=== PATIENT | female | born 1985 | race Caucasian/White ===

== ENCOUNTER 2020-10-07 11:04 | Emergency (ER) | payer BC, OTHER, SELFPAY ==
[2020-10-07 11:30] VITALS: BP 130/89; PULSE 96; RESP 14; TEMP 36.2; O2SAT 98; BMI 36.8
--- NOTE | 2020-10-07 11:42 | HMH.EDUTC ---
[facility] [place] Disposition Clinical Impression: Encounter for laboratory testing for COVID-19 virus Disposition: Home, Self-Care Condition on Discharge: Good Instructions: DI for COVID-19 (Suspected or Confirmed ), Coronavirus Disease 2019, Preventing the Spread of Coronavirus Discharge Instructions Additional Instructions: *Monitor Temp, Over the counter Motrin or Tylenol as directed/as needed Tylenol every 4 hours and Motrin every 6 hours (as long as your family doctor has told you that you can take it) for fever or pain. and straight to ER if unable to lower temp less than 101.0 after medication given *Warm salt water gargles may help to soothe the throat *Throat Lozenges *Warm fluids like tea with honey may help to soothe the throat *Sleep elevated *Humidifier/Vaporizer *Flonase 2 sprays in each nostril daily but be aware that it may take 2-3 days before you notice improvement Follow up IMMEDIATELY for new or worsening symptoms or no Noticeable improvement over the next 48-72 hours. 911 for difficulty breathing or swallowing You were tested for today for COVID19 your test result should be back in the next 24-48 hours, you may call to the [facility] to see if your test results are back in the next 48 hours [phone] [facility] hours are 9am-9pm You was given a handout with instructions for Self Quarantine and Self isolation for while you wait on test results and what to do if they are positive If you are positive the Health Dept will be contacting you also Prescriptions: Fluticasone Propionate [Flonase 50mcg nasal spray 16gm] 1 spr NS DAILY #1 bottle Transmission Status: Pending to [id number] Referrals: Larisa Ibarra APRN [Primary Care Provider] - As needed Forms: Work/School Release Time of Disposition: 11:47 Medical Decision Making - Bladimir Inquiry Pt receiving controlled substance: No Bladimir was queried for this patient: No Vital Signs: 10/07/20 11:30 Temperature 97.1 F L Temperature Source Oral Pulse Rate [Right Brachial] 96 H Respiratory Rate 14 Blood Pressure [Right Arm] 130/89 Blood Pressure Mean [Right Arm] 102 Blood Pressure Source [Right Arm] Automatic Cuff Blood Pressure Position [Right Arm] Sitting 02 Sat by Pulse Oximetry 98 Oxygen Delivery Method Room Air Orders (Tests/Meds): ORDERS Category Date Time Status Covid-19 Nasal PCR ([facility]) Routine Lab 10/07/20 11:06 Ordered [facility] [place] HPI - General Stated complaint: covid test Time Seen by Provider: 10/07/20 11:42 Mode of Arrival: Ambulatory Source of Information: Patient Limitations: No Limitations Description of Symptoms (Recalled from Triage Doc. by RN): PATIENT C/O COUGH, SORE THROAT, CHEST TIGHTNESS, HEADACHES, CHILLS, AND LOW-GRADE FEVER SINCE THIS MORNING HEENT Symptoms (Recalled from RN notes): Yes Resp Symptoms (Recalled from RN notes): No Skin Symptoms (Recalled from RN notes): No MS Symptoms (Recalled from RN notes): No Functional Status (Recalled from RN notes): WNL - History of Present Illness Provider Complaint: Patient states that she wanted to get tested for COVID States that she has been having sinus congestion and drainage, sore throat, cough, drainage in her throat body aches, and over all not feeling well States that symptoms started this morning - Related Data Previous Rx's Medication Instructions Recorded Fluticasone Propionate [Flonase 1 spr NS DAILY #1 bottle 10/07/20 50mcg nasal spray 16gm] Allergies Allergy/AdvReac Type Severity Reaction Status Date / Time cefprozil [From CEFZIL] Allergy Severe WHIVES Verified 10/07/20 11:35 - Worker's Comp Is this a Worker's Comp case?: No [facility] History - Hepatitis A Screen Drug use history?: No High risk sexual behaviors?: No History of sexually transmitted infection?: No Currently employed?: No Childcare worker?: No Do you have indoor plumbing?: Yes Do you have electricity?: Yes Attestation statement:: This patient has been screened for Hepatiti
[2020-10-07 11:46] VITALS: BP 130/89; PULSE 96; RESP 14; TEMP 36.2; O2SAT 98
[2020-10-07 11:59] LABS: UTC Influenza A Antigen Negative (Negative)
[2020-10-07 12:00] LABS: UTC Influenza B Antigen Negative (Negative)
[2020-10-08 09:52] LABS: Covid-19 Nasal PCR Sendout P&C NEGATIVE
== END 2020-10-07 11:55 | disposition home or self-care (01) ==
PROVIDERS: Emergency Provider Nurse Practitioner; PCP Nurse Practitioner Family
DX: Z20.822 Contact with and (suspected) exposure to COVID-19 (principal); R50.9 Fever, unspecified; R05 Cough; Z01.84 Encounter for antibody response examination
CPT/HCPCS: 87804; 99202; G0463; U0004

== ENCOUNTER → 2021-04-10 12:34 | Outpatient (CLI) | payer BC, SELFPAY ==
--- NOTE | 2021-04-10 12:39 | MM_ITS ---
PROCEDURE: MM DIG MAMM BI DX W/CAD Digital Breast Tomosynthesis Included CLINICAL INDICATION: BREAST MASS RT COMPARISON: US US BREAST RT COMPLETE from 04/10/2021 TECHNIQUE: Standard CC and MLO images and 3D Tomosynthesis was obtained. R2 CAD reviewed. FINDINGS: The breasts are composed of scattered fibroglandular tissue. No dominant mass lesions, suspicious calcification or architectural distortion is noted. At the site of marker placement in the right upper outer quadrant no focal suspicious mass lesions are noted. No evidence of mass lesions are noted on the ultrasound of the right breast. Benign appearing calcification in the right breast. IMPRESSION: No focal masses or suspicious findings. BI-RAD Category: 2 Benign Finding FOLLOW-UP: Follow-up as clinically indicated. Routine screening mammogram at age 40. (A letter has been sent to the patient regarding results of the study.) Dictated by: Eli Saul 04/10/2021 14:22 Eli Saul in [place] 04/10/2021 14:22
--- NOTE | 2021-04-10 12:39 | US_ITS ---
PROCEDURE: US BREAST RT COMPLETE CLINICAL INDICATION: BREAST MASS RT COMPARISON: No exams were available for comparison FINDINGS: At the area of concern at 10 o'clock position there is dense fibroglandular tissue. No focal masses or suspicious findings. Axillary lymph node measuring up to 1.3 centimeters noted. IMPRESSION: No focal masses or suspicious findings. Dictated by: Eli Saul 04/10/2021 14:24 Eli Saul in [facility] 04/10/2021 14:24
== END ==
PROVIDERS: PCP Nurse Practitioner Family; Visit Provider Nurse Practitioner Family
DX: N63.10 Unspecified lump in the right breast, unspecified quadrant (principal)
CPT/HCPCS: 76641; 77062; 77066; G0279

== ENCOUNTER 2021-06-01 09:18 | Emergency (ER) | payer BC, SELFPAY ==
[2021-06-01 09:36] VITALS: PULSE 109; RESP 18; TEMP 37.4; O2SAT 97; BMI 35.6
[2021-06-01 09:42] VITALS: BP 119/67; PULSE 109; RESP 16; TEMP 37.4
[2021-06-01 09:48] LABS: UTC Strep Screen (Rapid) Negative (Negative)
--- NOTE | 2021-06-01 09:56 | HMH.EDUTC ---
[facility] [place] Disposition Clinical Impression: Encounter for laboratory testing for COVID-19 virus Disposition: Home, Self-Care Condition on Discharge: Good Instructions: Preventing the Spread of Coronavirus Discharge Instructions Additional Instructions: You have been tested for COVID19. Please isolate yourself as if you are positive until test results received. Your results should be available on your patient portal when complete. Referrals: Larisa Ibarra APRN [Primary Care Provider] - Forms: Work/School Release Time of Disposition: 10:04 Medical Decision Making - Bladimir Inquiry Pt receiving controlled substance: No Vital Signs: 06/01/21 09:36 06/01/21 09:42 Temperature 99.3 F 99.3 F Temperature Source Oral Pulse Rate 109 H Pulse Rate [Left] 109 H Respiratory Rate 18 16 Blood Pressure 119/67 02 Sat by Pulse Oximetry 97 - Lab Data Lab results reviewed: Yes: I reviewed the patient's lab results. Lab Results 06/01/21 09:41: Strep Scn Rapid Clinic Negative Orders (Tests/Meds): ORDERS Category Date Time Status Covid-19 Nasal PCR ([facility]) Routine Lab 06/01/21 09:41 Ordered Strep Screen Confirmation Stat Micro 06/01/21 09:41 Received [facility] [place] HPI - General Stated complaint: sore throat, cough, headache, fever,congestion Time Seen by Provider: 06/01/21 09:55 Mode of Arrival: Ambulatory Source of Information: Patient Limitations: No Limitations Description of Symptoms (Recalled from Triage Doc. by RN): pt c/o sore throat, loss of taste, CEDILLO and congestion. since last night. HEENT Symptoms (Recalled from RN notes): Yes (sore throat, loss of taste, congestion and CEDILLO) Resp Symptoms (Recalled from RN notes): No Skin Symptoms (Recalled from RN notes): No MS Symptoms (Recalled from RN notes): No Functional Status (Recalled from RN notes): na - History of Present Illness Provider Complaint: Sore throat, headache, cough, body aches and chills since last night. This am she cannot smell or taste. No vomiting or diarrhea. No direct known exposure to COVID19 but she works at [employer]. Onset (ago): day(s) (1) Location: mouth Relieving factors: none Exacerbating factors: none Associated symptoms: cough, fever/chills Treatments prior to arrival: none - Related Data Previous Rx's Medication Instructions Recorded Fluticasone Propionate [Flonase 1 spr NS DAILY #1 bottle 10/07/20 50mcg nasal spray 16gm] Allergies Allergy/AdvReac Type Severity Reaction Status Date / Time cefprozil [From CEFZIL] Allergy Severe WHIVES Verified 10/07/20 11:35 - Worker's Comp Is this a Worker's Comp case?: No [facility] History - Hepatitis A Screen Drug use history?: No High risk sexual behaviors?: No History of sexually transmitted infection?: No Currently employed?: No Childcare worker?: No Do you have indoor plumbing?: Yes Do you have electricity?: Yes Attestation statement:: This patient has been screened for Hepatitis A risk factors. I have reviewed the patient's past medical history: Yes - Social History Alcohol Intake: never Occupational Status: other ROS Obtained: Yes All systems reviewed & no additional complaints - Constitutional Constitutional: Reports body ache, Reports chills, Reports malaise - ENT Ears, Nose, Mouth, and Throat: Reports sore throat - Respiratory Respiratory: Reports cough Physical Exam - General General appearance: alert, in no apparent distress - Head Head exam: normocephalic - Eye Eye exam: Present: PERRL - ENT ENT exam: Present: normal oropharynx, TM's normal bilaterally - Neck Neck exam: Present: normal inspection. Absent: lymphadenopathy - Chest Chest inspection: Present: normal inspection, symmetric chest wall rise - Respiratory Respiratory exam: Present: normal lung sounds bilaterally - Cardiovascular Cardiovascular exam: Present: regular rate, normal rhythm - Neurological Exam Neurological exam: Present: alert, oriented X
== END 2021-06-01 10:11 | disposition home or self-care (01) ==
PROVIDERS: Emergency Provider Physician Assistant; PCP Nurse Practitioner Family
DX: Z20.822 Contact with and (suspected) exposure to COVID-19 (principal); R43.9 Unspecified disturbances of smell and taste; R50.9 Fever, unspecified; R05 Cough
CPT/HCPCS: 87880; 99203; C9803; G0463; U0003; U0005

== ENCOUNTER → 2021-09-16 20:12 | Outpatient (CLI) | payer BC, SELFPAY | PROVIDERS: Visit Provider Nurse Practitioner Family | DX: J02.9 Acute pharyngitis, unspecified (principal); U07.1 COVID-19 | CPT/HCPCS: C9803; U0003; U0005 ==

== ENCOUNTER → 2021-12-16 17:21 | Outpatient (CLI) | payer OTHER, SELFPAY ==
--- NOTE | 2021-12-16 | XR_ITS ---
PROCEDURE INFORMATION: Exam: XR Right Foot Exam date and time: 12/16/2021 5:27 PM Age: 36 years old Clinical indication: Injury or trauma; Fall; Work related; Blunt trauma; Foot; Right; Injury date: 12/16/2021; Additional info: Patient dropped rack on foot TECHNIQUE: Imaging protocol: XR Right foot. Views: 3 or more views. COMPARISON: No relevant prior exams. FINDINGS: Bones/joints: Normal. No fractures or dislocations. The joint spaces are intact. Soft tissues: Normal. No swelling or abnormal density. IMPRESSION: No acute findings.
== END ==
PROVIDERS: PCP Nurse Practitioner Family; Visit Provider Nurse Practitioner Family
DX: M79.671 Pain in right foot (principal)
CPT/HCPCS: 73630

== ENCOUNTER → 2023-01-08 10:55 | Outpatient (CLI) | payer BC, SELFPAY ==
--- NOTE | 2023-01-08 11:02 | US_ITS ---
FINAL REPORT CLINICAL HISTORY: PELVIC PAIN,VAGINAL BLEEDING FINDINGS: Transvaginal sonographic images of the pelvis were obtained. The uterus measures 9.7 x 5.3 x 3.6 cm. The endometrium measures 11 mm, which is within normal limits. No uterine mass is identified. The right ovary measures 3.6 cm in length and left ovary measures up to 4.5 cm. Normal blood flow seen to the ovaries. There is a heterogeneous cystic mass measuring 4.5 cm in the left ovary which may represent an endometrioma or a complex cyst. Neoplasm is felt less likely. There is no evidence of free fluid. IMPRESSION: 4.5 cm heterogeneous cystic mass in the left ovary may represent an endometrioma or a complex cyst, neoplasm felt less likely. Reviewed, Interpreted and Dictated by Elias Clemens III, MD Transcribed by Shefali Olsen Authenticated and [facility]
== END ==
PROVIDERS: PCP Nurse Practitioner Family; Visit Provider Nurse Practitioner Family
DX: R10.2 Pelvic and perineal pain (principal); N92.3 Ovulation bleeding
CPT/HCPCS: 76830

== ENCOUNTER → 2023-02-22 13:35 | Outpatient (CLI) | payer BC, SELFPAY ==
--- NOTE | 2023-02-22 13:35 | US_ITS ---
PROCEDURE: US TRANSVAGINAL and transabdominal to better visualize the adnexae. CLINICAL INDICATION: pelvic pain / ovarian cyst COMPARISON: US US TRANSVAGINAL from 01/08/2023 FINDINGS: LMP: 02/01/2023 UTERUS: 10cm x 6cmx 4cm with a combined endometrial thickness of 7.4mm. The uterus is retroflexed and normal in shape and size. There are multiple nabothian cysts within the cervix. LEFT OVARY: [id number] with a volume of 10ml. There is a 2.2 centimeter follicle. The previously described 4.5 centimeter left ovarian hemorrhagic cyst has resolved. RIGHT OVARY: 3cmx [id number] with a volume of 6.4ml. No free fluid in the cul-de-sac. IMPRESSION: 1. Uterus is retroflexed and normal in shape and size. The endometrium appears normal. There are multiple nabothian cysts within the cervix. 2. Ovaries are normal in shape and size. There are follicles on both ovaries. The previously described 4.5 centimeter hemorrhagic cyst on the left ovary has resolved. 3. No fluid in the cul-de-sac. Dictated by: Gibran Encinas MD 02/22/2023 17:15 Gibran Encinas MD in [facility] 02/22/2023 17:15
== END ==
PROVIDERS: PCP Nurse Practitioner Family; Visit Provider Obstetrics & Gynecology
DX: R10.2 Pelvic and perineal pain (principal); N83.209 Unspecified ovarian cyst, unspecified side
CPT/HCPCS: 76830

== ENCOUNTER → 2023-04-20 11:19 | Outpatient (CLI) | payer BC, SELFPAY ==
[2023-04-20 11:43] LABS: Basophils % 0.4 % (0.1-2.0); Eosinophils # 0.2 K/mm3 (0.0-0.4); Eosinophils % 2.2 % (0.1-12.0); Hemoglobin 13.4 g/dL (12.2-16.2); Lymphocytes # 2.6 K/mm3 (0.7-4.5); Mean Corpuscular HGB Conc 32.6 g/dL (31.8-35.4); Mean Corpuscular Hemoglobin 28.4 pg (27.0-31.2); Mean Corpuscular Volume 87.2 fl (81-99); Mean Platelet Volume 8.2 fl (7.4-10.4); Monocytes # 0.6 K/mm3 (0.1-1.0); Monocytes % 5.8 % (1.7-9.3); Neutrophils # 6.2 K/mm3 (1.8-7.8); Neutrophils % 64.6 % (37.0-80.0); Platelet Count 407 K/mm3 (142-424); Red Cell Distribution Width 14.1 % (11.5-17.5); White Blood Count 9.6 K/mm3 (4.8-10.8)
[2023-04-20 13:02] LABS: Alanine Aminotransferase 18 U/L (12-78); Albumin/Globulin Ratio 1.3 (1.1-1.8); Alkaline Phosphatase 85 U/L (38-126); Anion Gap 11.7 mEq/L (5-15); Aspartate Amino Transferase 20 U/L (14-36); Bilirubin,Total 0.2 mg/dl (0.2-1.3); Blood Urea Nitrogen 11 mg/dl (7-17); Calcium 9.9 mg/dl (8.4-10.2); Carbon Dioxide 27 mmol/L (22.0-30.0); Chloride 108 mmol/L (98-107); Estimated Glomerular Filt Rate 81 ml/min (>60); GFR (African American) 98 ML/MIN (>60); Globulin 3.2 g/dL (1.3-3.2); Glucose 81 mg/dl (74-100); Potassium 4.7 mmoL/L (3.5-5.1); Sodium 142 mmol/L (136-145); Total Protein,Serum 7.2 g/dl (6.3-8.2)
[2023-04-20 13:28] LABS: HCG,Quantitative < 2 mIU/ml (0-5.42)
== END ==
LOC: LAB 11:20
PROVIDERS: PCP Nurse Practitioner Family; Visit Provider Obstetrics & Gynecology
DX: Z01.812 Encounter for preprocedural laboratory examination (principal); R10.2 Pelvic and perineal pain
CPT/HCPCS: 36415; 80053; 84702; 85025

== ENCOUNTER 2023-04-28 09:14 | Inpatient (IN) | payer BC, SELFPAY ==
[2023-04-26 11:53] VITALS: BMI 35.6
[2023-04-28] VITALS (22 sets, daily range): BP systolic 103–134; BP diastolic 47–87; PULSE 77–102; RESP 14–22; TEMP 36.1–43; O2SAT 90–99
[2023-04-28 08:00] LABS: Urine Pregnancy, HCG Qual. Negative (Negative)
--- NOTE | 2023-04-28 08:55 | EXP.HP ---
History of Present Illness *Admission Date: 04/28/23 *Reason for visit:: Pelvic pain, abnormal uterine bleeding *History of present illness: Ms Megan Crabtree is a very pleasant 37 yo P2012 who presents for preop visit. She complains of chronic pelvic pain. Pain is daily and reaches 9/10. Her pelvic ultrasound, 02/25/23, demonstrated uterus retroflexed and normal in shape and size, endometrium appears normal, multiple nabothian cysts within the cervix. Ovaries are normal in shape and size. There are follicles on both ovaries. The previously described 4.5 centimeter hemorrhagic cyst on the left ovary has resolved. No fluid in the cul-de-sac. Periods are heavy and painful. She has tried multiple hormones in the past and she states they make her feel crazy. She has surgical history of x 2 and tubal ligation. She desires definitive surgical intervention with hysterectomy. She would like to keep her ovaries if they look healthy. [facility] Disclaimer: The information contained in this section may have been updated after the patient was seen, as this information can be updated by other users. Medical History Abnormal uterine bleeding Heart murmur Ovarian cyst Pelvic pain Tobacco use Surgical History H/O tubal ligation History of delivery History of cholecystectomy Family History Other Diabetes FHx: mental illness Hypertension Thyroid disorder Social History Smoking Status: Current every day smoker alcohol intake: never substance use type: denies use current occupational status: employed Travel in the last 8 weeks: None Review of Systems Review of Systems Review of systems:: pertinent systems reviewed and negative unless documented below *Gastrointestinal Gastrointestinal: Reports abdominal pain *Genitourinary Genitourinary: Reports abnormal menses and Reports pelvic pain Meds Home Medications and Allergies Home Medications Medication Instructions Recorded Confirmed Type No Known Home Medications 02/24/23 04/28/23 History New Prescriptions to Start Prescriptions: Allergies Allergy/AdvReac Type Severity Reaction Status Date / Time cefprozil [From CEFZIL] Allergy Severe WHIVES Verified 04/28/23 07:50 amoxicillin [From Augmentin] Allergy Verified 04/28/23 07:50 clavulanic acid Allergy Verified 04/28/23 07:50 [From Augmentin] Exam Data for Last 24 hours Vital signs and Labs for Last 24 Hours: Temp Pulse Resp BP Pulse Ox O2 Del Method 97 F L 77 14 125/71 97 Room Air 04/28/23 07:52 04/28/23 07:52 04/28/23 07:52 04/28/23 07:52 04/28/23 07:52 04/28/23 07:52 Laboratory Results - last 24 hr 04/28/23 07:46: Urine HCG, Qual Negative I & O for Last 24 hours: Intake & Output 04/25/23 04/26/23 04/27/23 04/28/23 23:59 23:59 23:59 23:59 Weight 208 lb Constitutional Constitutional: no acute distress *Routine HEENT Exam Head: Present normocephalic and atraumatic Eye: Absent conjunctivae pink ENT: Present mucous membranes moist and dentition normal *Routine Neck Exam Neck: Present full ROM *Routine Respiratory Exam Respiratory: Present CTA bilaterally and normal respiratory effort *Routine Cardiovascular Exam Cardiovascular: Present RRR *Routine Abdominal Exam Abdominal: Present soft and normoactive bowel sounds; Absent tenderness or distended *Routine Rectal Exam Rectal:: deferred *Routine Genitalia Exam Genitalia:: normal female *Routine Extremities Exam Extremities: Present full ROM; Absent edema or calf tenderness *Routine Neurological Exam Neurological: Present alert, oriented X3 and moving all extremities Routine Psychiatric Exam Psychiatric: Present normal affect and cooperative Assessment and Plan *Assessment and plan (1) Pelvic pain: Status: Acute
--- NOTE | 2023-04-28 09:25 | P.PNANES_ITS ---
[facility] Disclaimer: The information contained in this section may have been updated after the patient was seen, as this information can be updated by other users. Medical History Abnormal uterine bleeding Heart murmur Ovarian cyst Pelvic pain Tobacco use Surgical History H/O tubal ligation History of delivery History of cholecystectomy Family History Other Diabetes FHx: mental illness Hypertension Thyroid disorder Social History Smoking Status: Current every day smoker alcohol intake: never substance use type: denies use current occupational status: employed Travel in the last 8 weeks: None [facility] Anesthesia Checklist Patient Identification Patient Identification: Arm Band and Verbal (Name & ) Structural Data Admitted From: Home Planned Operative Procedure/s: [facility] Consent for Planned Operative Procedure(s) Verified: Yes NPO Status Verified Time NPO: 00:00 Chart Verification Results Verified: HCG Additional verifications Anesthesia Reactions: No Hx Blood Transfusions: No Airway Assessment Mallampati Score:: Class I C-Spine Mobility Assessed: Yes TMJ Mobility Assessed: Yes Dentition: Good Dentition Neurological Assessment Hx Seizures: No Numbness or tingling in extremities: No Anesthesia Plan Anesthesia Risk discussed: Yes Anesthesia Plan: Verified ASA Class: II Anesthesia Type: General
--- NOTE | 2023-04-28 10:47 | SUR.OPER ---
0945: Decision made to go open. 1004: Open incision time. 1010: Family updated of patient current status. All laprascopic table items removed from the room with counts correct. Open table then opened and all counts completed. See separate note for final counts. OPEN INITIAL COUNT: Instruments: 99 main set +4 O'Saulo/O'Del Rio+ 23 hysterectomy instruments Bovie tip: 1 Laps: 20 Suction: 3 Suture: 2 Raytecs: 20
--- NOTE | 2023-04-28 11:23 | SUR.OPER ---
1121: Family updated of patient current condition.
--- NOTE | 2023-04-28 11:40 | SUR.OPER ---
Open Final Count: Instruments: 99 main set + 27 hysterectomy set + 4 O'Saulo/O'Del Rio + 4 clip appliers Bovie Tip: 1 Laps: 20+10= 30 Suction: 3 Raytecs: 20 Blades: 2 Reel: +1=1
--- NOTE | 2023-04-28 11:46 | SUR.OPER ---
Note Addendum: initial count 2 blades for open procedure.
--- NOTE | 2023-04-28 12:12 | EXP.ANES.I ---
[facility] Anesthesia Record Part I Anesthesia Record I Intake, IV Amount: 800 Hydration: Adequate Estimated blood loss (mL): 300 Urine output (mL): 100 Blood Pressure: 121/75 SaO2: 94 Pulse Rate: 100 Airway Patency: Patent Respiratory Rate: 22 Temperature: 97.5 F Pain scale (0-10): 0 Nausea: No Vomiting: No Patient is:: Drowsy and Oral/Nasal airway Stable to PACU at:: 12:12
--- NOTE | 2023-04-28 12:22 | EXP.OP.NOTE ---
Date of procedure: 04/28/23 Pre-op Diagnosis:: 1. Chronic pelvic pain 2. Abnormal uterine bleeding 3. Tobacco use 4. Anxiety Post-op Diagnosis:: 1. Chronic pelvic pain 2. Abnormal uterine bleeding 3. Tobacco use 4. Anxiety 5. Intra-abdominal adhesions Procedure performed:: 1. Laparoscopy 2. Laparotomy with extensive lysis of adhesions, approximately 45 minutes spent 3. Total abdominal hysterectomy Surgeon:: Lulu Cifuentes DO Parcel Wrapper(s):: Gibran Encinas MD [employer] REPA[employer] TECHNICIAN:: Анна Remy Anesthesia: GETA Estimated blood loss (mL): 300 Clinical Note:: Ms Megan Crabtree is a very pleasant 37 yo P2012 who presents for preop visit. She complains of chronic pelvic pain. Pain is daily and reaches 9/10. Her pelvic ultrasound, 02/25/23, demonstrated uterus retroflexed and normal in shape and size, endometrium appears normal, multiple nabothian cysts within the cervix. Ovaries are normal in shape and size. There are follicles on both ovaries. The previously described 4.5 centimeter hemorrhagic cyst on the left ovary has resolved. No fluid in the cul-de-sac. Periods are heavy and painful. She has tried multiple hormones in the past and she states they make her feel crazy. She has surgical history of x 2 and tubal ligation. She desires definitive surgical intervention with hysterectomy. She would like to keep her ovaries if they look healthy. Operative findings:: 1. On bimanual exam, uterus normal size and shape, no adnexal masses palpated 2. On laparoscopic exam, extensive intraabdominal adhesions. Uterus could not be identified laparoscopically secondary to adhesions between omentum, bowel and anterior abdominal wall and side wall. Decision was made to convert to laparotomy Operative note:: Discussed risks, benefits, alternatives, expectations and possible complications of surgery. All questions addressed and answered. Patient wished to proceed with surgery. Patient was wheeled back to the operating room and placed under general anesthesia without difficulty. She was placed in the dorsal lithotomy position. She was prepped and draped in normal sterile fashion. Beginning at the vagina, a gibson catheter was inserted into the bladder and draining clear urine prior to the start of the procedure. Weighted Auvuard was placed in the vaginal vault. Anterior lip of the cervix was grasped with single tooth tenaculum. Uterus sounded to 10. Marlon dilators were used to dilate the cervix. Advincula uterine manipulator was inserted into the cervix with the colpotomy cup covering the cervix. Single tooth tenaculum was removed prior to complete placement of colpotomy cup over cervix. Uterine balloon was filled with 10cc of air. Vaginal balloon was filled with 60 cc of air. Weighted Auvard was removed. Attention was then turned to the abdomen. Skin just below the umbilicus was injected with 0.5% marcaine. A 1.5 cm infraumbilical incision was made. Veress needle was tested and inserted intrabdominally. Opening pressure was 10 mm Hg. Intraabdominal pressure varied from 10 to 17 mm Hg and flow was not consistent. Laparoscope within 11 mm blunt trocar was inserted intrabdominally under direct visualization. Peritoneal cavity was insulflated to 15 mm Hg. Obturator and scope were removed. Laparoscope was inserted into the trocar sleeve. Abdomen and pelvis was viewed in its entirety. Examination of the peritoneal cavity revealed no signs of injury from entry and extensive intraabdominal adhesions between omentum, bowel and anterior abdominal wall as well as side wall. See findings above. Decision was made to convert to laparotomy. Laparoscope was removed. Pneumoperitoneum was released into the atmosphere. Infraumbilical trocar was removed under direct laparoscopic visualization to ensure no herniation of bowel or omentum. Skin incision was reapproximated with 3-0 Vicryl. Hemostasis was noted. Attention was turned to the vagina. All instruments were removed from the vagina. A
--- NOTE | 2023-04-28 14:07 | EXP.ANES.II ---
[facility] Anesthesia Record Part II Anesthesia Record Part II Discharge Time: 12:42 Destination: Obstetric PACU nurse assessment reviewed?: Yes Patient Condition:: Good Anesthesia Complications:: None Swallowing reflex intact?: Yes Airway Patency: Patent Cyanosis?: No Blood Pressure: 121/87 SaO2: 92 Respiratory Rate: 17 Pulse Rate: 89 Temperature: 97.5 F Mental Status: Alert & Oriented Pain level:: 5 Nausea and/or vomitting:: None Intake, IV Amount: 0 Hydration: Adequate
--- NOTE | 2023-04-28 15:36 | PC.NURSE ---
PROCEDURE FOR TAP BLOCK TIME OUT 1457 START 1452 STOP 1500 Gagan FLORES AT BEDSIDE WITH José Miguel DE
--- NOTE | 2023-04-28 16:30 | PC.NURSE ---
PT GIVEN INCENTIVE HERMES AT THIS TIME - LUNGS SOUNDS WITH RHONCHI AND WHEEZING. PT HAS BEEN DEEP BREATHING AND COUGHING. PILLOW TO SPLINT. BOWEL SOUNDS ACTIVE X4. MIDLINE INCISION UNCHANGED FROM PREVIOUS ASSESMENT. JACK IN PLACE. IV INFUSING. NO NEEDS.
--- NOTE | 2023-04-28 18:44 | PC.NURSE ---
DR CAMARGO IN ROOM. REPORTED ON URINE OUTPUT. NO NEW ORDERS.
--- NOTE | 2023-04-28 19:19 | PC.NURSE ---
REPORT TO Naresh GALINDO RN
--- NOTE | 2023-04-28 19:20 | PC.NURSE ---
REPORT RECIEVED FROM ALFIERN
--- NOTE | 2023-04-28 20:15 | PC.NURSE ---
PT LUNGS CLEAR TO ASCULTATE,RESP.EVEN AND UNLABORED,PT REMAINS ON OXYGEN PER NC AT 3 LITERS,SATURATED LEVEL 97%.PT ABLE TO ACHIEVE 1000ML ON INCENTIVE SPIROMETER.ENCOURAGED PT TO USE IT SEVERAL TIMES AN HOUR,PT REPORTS SHE HAS BEEN USING IT.
--- NOTE | 2023-04-28 22:44 | PC.NURSE ---
DECREASED OXYGEN TO 2 LITERS PER NC .PT USING HER INCENTIVE SPIROMETER.SHE REPORTS SHE HAS BEEN CHEWING GUM FOR THE GAS.TEMP AX WAS 98.6,NO OTHER NEED OR CONCERNS VOICED
[2023-04-29] VITALS (9 sets, daily range): BP systolic 90–122; BP diastolic 35–60; PULSE 75–95; RESP 16–18; TEMP 36.4–37.5; O2SAT 97–99
--- NOTE | 2023-04-29 01:16 | PC.NURSE ---
PT REPORTS PAIN IS GOING DOWN.PAIN IS TOLERABLE NOW.WATER PITCHER REFILLED AND AN APPLE JUICE PROVIDED,NO OTHER NEEDS OR CONCERNS VOICED
--- NOTE | 2023-04-29 04:20 | PC.NURSE ---
SCATTERED WHEEZING NOTED THIS MORNING.PT ENCOURAGED TO USE HER INCENTIVE SPIROMETER.SAT LEVEL 97% ON 2 LITERS,PT REPORTS SHE THINKS THE OXYGEN IS WHY SHE IS COUGHING,REMOVED OXYGEN AND WILL RECHECK SAT.LEVEL IN ABOUT 45MINS TO 1 HOUR.NO NEW DRAINAGE TO DRESSING,,JACK CATH PATENT AND DRAINING CLEAR YELLOW URINE.BOWEL SOUNDS NORMAL X4 QUADS,MEDICATED WITH CARON.TORADOL,NO OTHER NEEDS OR CONCERNS VOICED
--- NOTE | 2023-04-29 05:40 | EXP.ACUTE.PN ---
Subjective *Date: 04/29/23 *Time: 05:40 Interval history: POD # 1 s/p laparoscopy, KATHY Resting comfortably. Pain is controlled with medication. She is tolerating clear liquids. Admits she is hungry. She is not passing flatus yet. Pleitez catheter in place draining clear urine. Denies fever/chills, chest pain and shortness of breath. No headaches or dizziness. She admits to a cough. She has not been up ambulating yet. Medical Exam Vital signs and Labs for Last 24 Hours: Vital Signs Temp Pulse Pulse Pulse Resp BP BP 04/29/23 05:30 04/29/23 02:30 04/29/23 01:12 04/29/23 00:40 04/29/23 00:40 98.5 F 82 17 107/35 L 04/28/23 23:19 04/28/23 22:36 04/28/23 22:00 04/28/23 21:13 04/28/23 20:15 04/28/23 20:15 102 H 04/28/23 20:00 99.0 F 102 H 18 130/71 04/28/23 19:00 98.0 F 96 H 18 04/28/23 18:00 97 H 18 04/28/23 18:42 04/28/23 17:58 04/28/23 17:00 95 H 18 04/28/23 15:00 04/28/23 13:00 04/28/23 16:00 98.1 F 99 H 16 04/28/23 15:30 93 H 18 04/28/23 15:00 93 H 18 04/28/23 14:30 97.8 F 93 H 18 04/28/23 16:21 04/28/23 15:00 18 04/28/23 14:00 97.8 F 80 20 04/28/23 13:45 86 19 04/28/23 13:15 81 17 04/28/23 13:30 80 18 04/28/23 13:00 97.8 F 86 18 04/28/23 14:49 04/28/23 12:42 89 17 04/28/23 12:32 97 H 18 04/28/23 12:22 101 H 17 04/28/23 12:12 97.5 F L 99 H 22 04/28/23 13:30 97.9 F 79 16 04/28/23 07:52 97 F L 77 14 04/28/23 14:09 17 04/28/23 12:15 97.5 F L 100 H 22 121/75 BP Pulse Ox O2 Del Method O2 Flow Rate FiO2 04/29/23 05:30 97 Room Air 04/29/23 02:30 Nasal Cannula 2 04/29/23 01:12 Nasal Cannula 2 04/29/23 00:40 Nasal Cannula 2 04/29/23 00:40 98 Nasal Cannula 2 04/28/23 23:19 Nasal Cannula 2 04/28/23 22:36 Nasal Cannula 2 04/28/23 22:00 Nasal Cannula 3 04/28/23 21:13 Nasal Cannula 3 04/28/23 20:15 Nasal Cannula 3 04/28/23 20:15 97 Nasal Cannula 3 04/28/23 20:00 97 Nasal Cannula 3 04/28/23 19:00 110/47 L 96 Room Air 04/28/23 18:00 121/64 97 Nasal Cannula 3 04/28/23 18:42 Nasal Cannula 3 04/28/23 17:58 Room Air 04/28/23 17:00 134/56 L 94 L Nasal Cannula 3 04/28/23 15:00 Nasal Cannula 3 04/28/23 13:00 Room Air 04/28/23 16:00 115/66 94 L Nasal Cannula 3 04/28/23 15:30 122/62 94 L Nasal Cannula 3 04/28/23 15:00 117/64 91 L Nasal Cannula 3 04/28/23 14:30 121/63 94 L Nasal Cannula 2 04/28/23 16:21 Nasal Cannula 3 04/28/23 15:00 93 L Room Air 3 04/28/23 14:00 115/59 L 95 Nasal Cannula 3 04/28/23 13:45 116/51 L 96 Nasal Cannula 2 04/28/23 13:15 112/57 L 92 L Room Air 04/28/23 13:30 104/55 L 92 L Nasal Cannula 2 04/28/23 13:00 103/55 L 90 L Room Air 04/28/23 14:49 Nasal Cannula 2 04/28/23 12:42 121/87 92 L Room Air 04/28/23 12:32 120/75 97 Room Air 04/28/23 12:22 114/67 99 Room Air 04/28/23 12:12 121/75 94 L Room Air 04/28/23 13:30 104/55 L 91 L Room Air 04/28/23 07:52 125/71 97 Room Air 04/28/23 14:09 04/28/23 12:15 Intake and Output 04/28/23 04/28/23 04/29/23 15:59 23:59 07:59 Intake Total 800 / 800 Output Total 350 / 350 1725 / 1725 Balance 800 / 450 -350 / 450 -1725 / -1725 Intake: Intake, Total IV Amount 800 / 800 Output: Output, Urine Amount 350 / 350 1725 / 1725 Laboratory Results - last 24 hr 04/28/23 07:46: Urine HCG, Qual Negative I & O for Labs for Last 24 Hours: Intake & Output 04/26/23 04/27/23 04/28/23 04/29/23 23:59 23:59 23:59 23:59 Intake Total 800 / 800 Output Total 350 / 350 1725 / 1725 Balance 450 / 450 -1725 / -1725 Weight 208 lb Head: Present atraumatic and norm
--- NOTE | 2023-04-29 07:15 | PC.NURSE ---
REPORT GIVEN TO ESSIERN
[2023-04-29 07:19] LABS: Basophils % 0.2 % (0.1-2.0); Eosinophils % 0.4 % (0.1-12.0); Hematocrit 30.8 % (37.0-47.0); Lymphocytes # 1.8 K/mm3 (0.7-4.5); Mean Corpuscular HGB Conc 32.4 g/dL (31.8-35.4); Mean Corpuscular Hemoglobin 28.6 pg (27.0-31.2); Mean Corpuscular Volume 88.2 fl (81-99); Mean Platelet Volume 9.1 fl (7.4-10.4); Monocytes # 0.7 K/mm3 (0.1-1.0); Monocytes % 5.6 % (1.7-9.3); Neutrophils # 10.2 K/mm3 (1.8-7.8); Neutrophils % 79.8 % (37.0-80.0); Platelet Count 318 K/mm3 (142-424); Red Blood Count 3.49 M/mm3 (4.20-5.40); Red Cell Distribution Width 14.1 % (11.5-17.5); White Blood Count 12.7 K/mm3 (4.8-10.8)
[2023-04-29 07:40] LABS: Chloride 108 mmol/L (98-107); Potassium 3.9 mmoL/L (3.5-5.1); Sodium 138 mmol/L (136-145)
[2023-04-29 07:43] LABS: Alanine Aminotransferase 23 U/L (12-78); Albumin Level 2.7 g/dl (3.5-5.0); Alkaline Phosphatase 74 U/L (38-126); Anion Gap 7.9 mEq/L (5-15); Aspartate Amino Transferase 37 U/L (14-36); Bilirubin,Total 0.5 mg/dl (0.2-1.3); Blood Urea Nitrogen 6 mg/dl (7-17); Carbon Dioxide 26 mmol/L (22.0-30.0); Creatinine Clearance Estimated 191 mL/min (50-200); Estimated Glomerular Filt Rate 112 ml/min (>60); GFR (African American) 136 ML/MIN (>60); Globulin 2.6 g/dL (1.3-3.2); Total Protein,Serum 5.3 g/dl (6.3-8.2)
[2023-04-29 07:44] LABS: Calcium 8.5 mg/dl (8.4-10.2); Glucose 119 mg/dl (74-100)
--- NOTE | 2023-04-29 07:45 | PC.NURSE ---
POC discussed with patient. Patient desires to have f/c removed, eat regular food, and get out of the bed. Pt. states she is very hungry. Pt. continues to use incentive spirometer a few times every hour she is awake. Pt. states pain is 6/10 with cramping, however states a pain level of 4-5/10 is acceptable. Dressing is dry and intact with no new drainage noted.
--- NOTE | 2023-04-29 08:10 | PC.NURSE ---
F/C removed intact, pt. tolerated well. No vaginal bleeding noted. Pt. instructed to ask for assistance when getting out of bed the first time.
--- NOTE | 2023-04-29 08:25 | PC.NURSE ---
Pt. up to BR for the first time, gait steady, pt denies feeling dizzy or light headed. Pt. able to void, void not measured.
--- NOTE | 2023-04-29 10:08 | PC.NURSE ---
Pt. ambulating in the sadler with sig other at side. non skid socks on, gait steady, pt. denies feeling dizzy or light headed.
--- NOTE | 2023-04-29 11:35 | PC.NURSE ---
Pt. states she has now passed gas after walking. Pt. continues to use incentive spirometer as directed. Pt. denies any needs/ wants at this time.
--- NOTE | 2023-04-29 13:06 | PC.NURSE ---
Pt. sleeping at this time, respirations even/ non labored, skin pink and dry. Report given to Rebecca Dickson RN
--- NOTE | 2023-04-29 13:30 | PC.NURSE ---
Report received from DAMIAN Can.
--- NOTE | 2023-04-29 16:39 | PC.NURSE ---
Reassessment complete. ++BS x4 quads, passing flatus, no bm yet. Lungs clear, continues using I/S. Saline lock remains in rt arm at this time. No edema noted. Denies any problems with voiding. Has been ambulating in hallway several times this shift. Tolerating regular diet. Sig other remains at bs and attentive to pt's needs.
--- NOTE | 2023-04-29 19:15 | PC.NURSE ---
REPORT RECIEVED FROM CHINARN
--- NOTE | 2023-04-29 19:45 | PC.NURSE ---
PT AMBULATING IN [place] WITH SIGNIFICANT OTHER
--- NOTE | 2023-04-29 22:40 | PC.NURSE ---
BED LINENS CHANGED WHILE PT IN SHOWER.PT BEING ASSISTED PER SIGNIFICANT OTHER
[2023-04-30 04:12] VITALS: BP 103/47; PULSE 69; RESP 17; TEMP 36.9; O2SAT 97
--- NOTE | 2023-04-30 04:17 | PC.NURSE ---
PT HAS SLEPT WELL TONIGHT,LUNGS CLEAR TO ASCULTATE ALL FRONT,PT REPORTS SHE COUGHED UP A LOT EARLIER AND IT WAS GARCIA LOOKING.NO NEW DRAINAGE TO DRESSING,PT REPORTS VOIDING WITHOUT DIFF. AND PASSING GAS,PT HAS ONLY BEEN GIVEN TYLENOL ONCE AND MOTRIN ONCE,SHE DENIES NEEDING ANYTHING ELSE,AFEBRILE
--- NOTE | 2023-04-30 07:15 | PC.NURSE ---
REPORT GIVEN TO ESSIERN
--- NOTE | 2023-04-30 07:30 | PC.NURSE ---
Dr. Cifuentes at bedside for eval/ discussion. Incision dressing removed by
--- NOTE | 2023-04-30 07:45 | PC.NURSE ---
Incision clean and dry without drainage and open to air with patt in tact. Wound edges well approximated. No s/s of infection noted.
[2023-04-30 08:00] VITALS: BP 115/60; PULSE 85; RESP 16; TEMP 36.7; O2SAT 98
[2023-04-30 08:04] VITALS: O2SAT 98
--- NOTE | 2023-04-30 08:04 | EXP.DC.SUM ---
General Admission date:: 04/28/23 Discharge date: 04/30/23 HPI HPI HPI: POD # 2 s/p laparoscopy, KATHY She is feeling well. Pain is controlled. Denies vaginal bleeding. She is voiding without difficulty and passing flatus. Tolerating regular diet. Denies fever/chills, chest pain and shortness of breath. No headaches or dizziness. Ambulating well ad chayo. Hospital Course Hospital Course Hospital Course: Ms Megan Crabtree is a very pleasant 37 yo P2012 who presented to [facility] for scheduled surgery. She complains of chronic pelvic pain. Pain is daily and reaches 9/10. Her pelvic ultrasound, 02/25/23, demonstrated uterus retroflexed and normal in shape and size, endometrium appears normal, multiple nabothian cysts within the cervix. Ovaries are normal in shape and size. There are follicles on both ovaries. The previously described 4.5 centimeter hemorrhagic cyst on the left ovary has resolved. No fluid in the cul-de-sac. Periods are heavy and painful. She has tried multiple hormones in the past and she states they make her feel crazy. She has surgical history of x 2 and tubal ligation. She desires definitive surgical intervention with hysterectomy. She would like to keep her ovaries if they look healthy. She underwent laparoscopy, lysis of adhesion, total abdominal hysterectomy on 04/28/23. She did well postoperatively. Pain controlled with PO medication. She was voiding without difficulty and passing flatus. Tolerating PO. She denied fever/chills, chest pain and shortness of breath. No dizziness or lightheadedness. Vital signs stable, afebrile. Heart regular rate and rhythm. Lungs clear to auscultation. Abdomen soft, nontender, incision clean/dry/intact. Ambulating well ad chayo. She was discharged home on POD # 2. Exam Data for Last 24 hours Vital signs and Labs for Last 24 Hours: Temp Pulse Resp BP Pulse Ox O2 Del Method O2 Flow Rate 98.4 F 69 17 103/47 L 97 Room Air 2 04/30/23 04:12 04/30/23 04:12 04/30/23 04:12 04/30/23 04:12 04/30/23 04:12 04/30/23 06:40 04/29/23 04:20 FiO2 3 04/28/23 15:00 I & O for Last 24 hours: Intake & Output 04/27/23 04/28/23 04/29/23 04/30/23 23:59 23:59 23:59 23:59 Intake Total 800 / 800 Output Total 1150 / 1150 4125 / 4125 0 / 0 Balance -350 / -350 -4125 / -4125 0 / 0 Constitutional Constitutional: no acute distress *Routine HEENT Exam Head: Present normocephalic and atraumatic Eye: Absent conjunctivae pink ENT: Present mucous membranes moist and dentition normal *Routine Neck Exam Neck: Present full ROM *Routine Respiratory Exam Respiratory: Present CTA bilaterally and normal respiratory effort *Routine Cardiovascular Exam Cardiovascular: Present RRR *Routine Abdominal Exam Abdominal: Present soft and normoactive bowel sounds; Absent tenderness or distended Comments: Incision clean/dry/intact, metal patt present *Routine Rectal Exam Patient deferred: visual exam *Routine Exam Patient deferred: external exam *Routine Extremities Exam Extremities: Present full ROM; Absent edema or calf tenderness *Routine Neurological Exam Neurological: Present alert, oriented X3 and moving all extremities Routine Psychiatric Exam Psychiatric: Present normal affect and cooperative DS: Diagnosis Discharge Diagnosis (1) S/P total abdominal hysterectomy: Status: Acute Code(s): Z90.710 - Acquired absence of both cervix and uterus Problem details: 04/28/23 (2) Abnormal uterine bleeding: Status: Acute Code(s): N93.9 - Abnormal uterine and vaginal bleeding, unspecified (3) Pelvic pain: Status: Acute Code(s): R10.2 - Pelvic and perineal pain (4) Tobacco use: Status: Acute Code(s): Z72.0 - Tobacco use (5) Acute blood loss anemia: Status: Acute Code(s): D62 - Acute posthemorrhagic anemia Meds Home Medications and Allergies Home Medications Medication Instructions Recorded Conf
--- NOTE | 2023-04-30 10:00 | PC.NURSE ---
Pt. updated on impending d/c. Pt. states she will call her family to come pick her up.
== END 2023-04-30 11:25 | disposition home or self-care (01) | DRG 328 ==
LOC: OB 09:15
PROVIDERS: Admitting Provider Obstetrics & Gynecology; PCP Nurse Practitioner Family; Visit Provider Obstetrics & Gynecology
PROC: 0UT90ZZ Resection of Uterus, Open Approach (ICD-10-PCS; principal; 2023-04-28 09:15)
DX: R10.2 Pelvic and perineal pain (principal); N93.9 Abnormal uterine and vaginal bleeding, unspecified; F17.210 Nicotine dependence, cigarettes, uncomplicated; F41.9 Anxiety disorder, unspecified; I10 Essential (primary) hypertension
CPT/HCPCS: 58150; 36415; 80053; 81025; 85025; 96374; C9290; J0131; J2405